=== PATIENT | male | born 1980 | race Hispanic/Latino ===

== ENCOUNTER 2021-11-12 09:48 | Emergency (ER) | payer SELFPAY ==
[~2021-11-12] VITALS: Ht 170.2 cm; Wt 70.0 kg
[2021-11-12 10:36] VITALS: BP 130/85
[2021-11-12 11:00] VITALS: BP 117/68
[2021-11-12] MEDS ORDERED: OMNICEF300 M1 PO (11:46)
[2021-11-12 12:16] VITALS: BP 117/68
== END 2021-11-12 12:17 | disposition home or self-care (01) | DRG 605 ==
LOC: ED 09:48
PROC: 0HQGXZZ Repair Left Hand Skin, External Approach (ICD-10-PCS; principal; 2021-11-12)
DX: S61.412A Laceration without foreign body of left hand, initial encounter (principal); W27.1XXA Contact with garden tool, initial encounter; Y93.H2 Activity, gardening and landscaping; Y92.007 Garden or yard of unspecified non-institutional (private) residence as the place of occurrence of the external cause; Y99.0 Civilian activity done for income or pay